=== PATIENT | male | born 1980 | race Caucasian/White ===

== ENCOUNTER 2019-10-08 10:17 | Emergency (ER) | payer MEDICAID, OTHER ==
[~2019-10-08] VITALS: Ht 162.6 cm; Wt 87.2 kg
[~2019-10-08 10:17] MED LIST: [UNRECOGNIZED DRUG - OTHER]
[2019-10-08 11:14] VITALS: BP 133/85
--- NOTE | 2019-10-08 11:14 | NUR ---
Patient/Caregiver given discharge instructions and they have confirmed that they understand the instructions. Patient ambulatory with steady gait.
== END 2019-10-08 11:16 | disposition home or self-care (01) ==
LOC: ED 11:07
DX: U07.1 COVID-19 (principal); B34.9 Viral infection, unspecified; R50.9 Fever, unspecified; R19.7 Diarrhea, unspecified; M79.10 Myalgia, unspecified site; R00.0 Tachycardia, unspecified
CPT/HCPCS: 36415; 87635; 93005; 99284

== ENCOUNTER 2019-10-14 19:41 | Emergency (ER) | payer MEDICAID ==
[~2019-10-14] VITALS: Ht 162.6 cm; Wt 85.1 kg
[2019-10-14 19:52] VITALS: BP 159/94
== END 2019-10-14 21:54 | disposition home or self-care (01) ==
LOC: ED 20:07
DX: U07.1 COVID-19 (principal); R06.02 Shortness of breath; F41.1 Generalized anxiety disorder; R06.4 Hyperventilation
CPT/HCPCS: 71045; 99283; Q0177

== ENCOUNTER 2019-11-18 12:01 | Emergency (ER) | payer MEDICAID ==
[~2019-11-18] VITALS: Ht 162.6 cm; Wt 84.2 kg
--- NOTE | 2019-11-18 12:37 | NUR ---
ASSUMED CARE OF PT. AMBULATED TO ROOM WITH STEADY GAIT. HIRAM SILVA EVALUATED PT. 39 Y/O M. PRESENTS WITH A C/O "I WAS DIAGNOSED WITH COVID ABPOUT 6 WEEKS AGO, NOW HAVING NUMBNESS OF BOTH LEGS, ARM AND LOWER LIP." DENIES FEVER, COUGH, SOB, CP, ABD PAIN, N/V/D OR ANY PAIN. NO RECENT COVID TEST. INTERMITTENT NUMBNESS AND TINGLING TO ARMS AND LOWER LIP, RESOLVED CURRENTLY, BUT "MY LEGS HAVE BEEN THAT WAY SINCE COVID AND SO PAINFUL." CONTINUOUS PULSE OX, INGOT STRIPPER, BP IN PLACE.
--- NOTE | 2019-11-18 12:45 | NUR ---
BP ELEVATD, HX HTN, DISCUSSED WITH HIRAM SILVA, AWARE, NO NEW ORDERS RECEIVED. PT REPORTS "I HAVEN'T TAKEN BLOOD PRESSURE MEDICINE IN A WHILE, MY BLOOD PRESSURE WAS BETTER."
[2019-11-18 12:48] LABS: BASOPHILS # (AUTO) 0.04 x10^3/uL (0-0.1); BASOPHILS % (AUTO) 0 % (0-1); EOSINOPHILS # (AUTO) 0.05 x10^3/uL (0-0.4); EOSINOPHILS % (AUTO) 1 % (1-7); LYMPHOCYTES # (AUTO) 2.64 x10^3/uL (1-3.4); LYMPHOCYTES % (AUTO) 30 % (22-44); MD NO; MEAN CORPUSCULAR HEMOGLOBIN 29.6 pg (27.5-34.5); MEAN CORPUSCULAR HGB CONC 33.3 g/dL (33.2-36.2); MEAN CORPUSCULAR VOLUME 88.9 fL (81-97); MEAN PLATELET VOLUME 7.3 fL (7.4-10.4); MONOCYTES # (AUTO) 0.52 x10^3/uL (0.2-0.8); MONOCYTES % (AUTO) 6 % (2-9); NEUTROPHILS # (AUTO) 5.47 x10^3/uL (1.8-6.8); NEUTROPHILS % (AUTO) 63 % (42-75); PLATELET COUNT 345 x10^3/uL (130-400); RED BLOOD COUNT 5.73 x10^6/uL (4.38-5.82); RED CELL DISTRIBUTION WIDTH 12.7 % (9.4-14.8)
[2019-11-18 12:59] LABS: ALBUMIN 4.2 g/dL (3.4-5.0); ANION GAP 7 mmol/L (5-15); CALCIUM 9.1 mg/dL (8.5-10.1); CHLORIDE 110 mmol/L (98-107); CREATININE 0.93 mg/dL (0.7-1.3)
[2019-11-18 13:09] LABS: FREE T4 (FREE THYROXINE) 1.21 ng/dL (0.76-1.46)
--- NOTE | 2019-11-18 13:16 | NUR ---
pt up for recheck.
[2019-11-18 13:38] VITALS: BP 127/71
--- NOTE | 2019-11-18 13:39 | NUR ---
BREAK RN: Patient/Caregiver given discharge instructions and they have confirmed that they understand the instructions. Patient ambulatory with steady gait.
== END 2019-11-18 13:40 | disposition home or self-care (01) ==
LOC: ED 13:00
DX: R20.2 Paresthesia of skin (principal); F41.1 Generalized anxiety disorder; R00.0 Tachycardia, unspecified
CPT/HCPCS: 36415; 80048; 82040; 83735; 84439; 84443; 85025; 93005; 99284